=== PATIENT | female | born 1955 | race Caucasian/White ===

== ENCOUNTER → 2018-10-21 09:51 | Outpatient (CLI) | payer OTHER, SELFPAY ==
[2018-10-13 15:36] VITALS: BMI 30.4
--- NOTE | 2018-10-21 10:43 | ECHOD_ITS ---
Reason For Study: HYPERTENSION Procedure This was a 2D Doppler, Color Flow transthoracic echocardiogram. Exam performed in department. Left Ventricle Normal LV size. Left ventricular systolic function is normal. The estimated ejection fraction is 60 %. Stage 1 diastolic dysfunction. No regional wall motion abnormalities noted. Right Ventricle Normal RV size. Normal systolic function. Atria Normal left atrium. Normal right atrium. Mitral Valve Normal mitral valve. Tricuspid Valve Normal tricuspid valve. Mild (1+) tricuspid valve insufficiency. Pulmonary artery systolic pressure is 38 mmHg. Aortic Valve Normal aortic valve. Trisinus/trileaflet aortic valve. Pulmonic Valve Normal pulmonic valve. Great Vessels Normal aortic root. The pulmonary artery is normal size. Normal inferior vena cava. Pericardium/Pleural No pericardial effusion. MMode/2D Measurements & Calculations LVIDd: 4.6 cm IVSd: 0.86 cm Ao root diam: 3.3 cm LVIDs: 3.0 cm LVPWd: 0.81 cm RVDd: 3.1 cm FS: 34.8 % LAV(MOD-bp): 49.6 ml LVAd ap4: 27.9 cm2 SV(MOD-sp4): 50.8 ml LAV(MOD-bp) Indexed: 27.0 ml/m2 EDV(MOD-sp4): 77.0 ml LAV(MOD-sp2): 58.7 ml EDV(sp4-el): 80.8 ml LAV(MOD-sp4): 35.9 ml LVAs ap4: 14.1 cm2 ESV(MOD-sp4): 26.2 ml ESV(sp4-el): 26.4 ml EF(MOD-sp4): 66.0 % EF(sp4-el): 67.3 % SV(sp4-el): 54.3 ml LA A4 area: 14.7 cm2 LA dimension(2D): 3.5 cm RA A4 area: 11.7 cm2 Time Measurements MV dec time: 0.39 sec Doppler Measurements & Calculations MV E max mathew: 81.6 cm/sec Lat Peak E' Mathew: 9.3 cm/sec Med Peak E' Mathew: 6.1 cm/sec MV A max mathew: 120.6 cm/sec E/E' lat: 8.8 E/E' med: 13.3 MV E/A: 0.68 Ao V2 max: 178.0 cm/sec LV V1 max: 147.6 cm/sec PA V2 max: 127.3 cm/sec Ao max P.7 mmHg LV V1 max P.7 mmHg TR max mathew: 293.3 cm/sec TR max P.4 mmHg Interpretation Summary Normal LV size. Left ventricular systolic function is normal. The estimated ejection fraction is 60 %. Stage 1 diastolic dysfunction. Mild (1+) tricuspid valve insufficiency. Ordering Physician: Long Oh Referring Physician: JENNIFER BHATT Performed By: Jayne Fontenot RDCS
== END ==
PROVIDERS: Family Provider Family Medicine; PCP Family Medicine; Referring Provider Internal Medicine Cardiovascular Disease; Visit Provider Internal Medicine Cardiovascular Disease
DX: I10 Essential (primary) hypertension (principal); R55 Syncope and collapse
CPT/HCPCS: 93306

== ENCOUNTER 2018-10-25 07:53 | Day surgery (SDC) | payer OTHER, SELFPAY ==
[2018-10-13 15:36] VITALS: BMI 30.4
[2018-10-21 10:28] LABS: Hematocrit 42.3 % (37-47); Hemoglobin 14.1 g/dl (12.0-15.0); Mean Corp Hgb Conc 33.3 g/gl (32-36); Mean Corpuscular Hgb 30.5 pg (27.0-32.0); Mean Corpuscular Volume 91.4 fL (81-99); Mean Platelet Vol. 10.6 fl (6.2-12.0); Platelet Count 192 K/mm3 (150-450); RBC Distribution Width CV 12.2 % (11.6-14.6); RBC Distribution Width SD 40.7 fl (35.1-43.9); Red Blood Count 4.63 M/mm3 (4.2-5.4); Scan Indicated on CBC? Y/N NO; White Blood Count 4.5 K/mm3 (4.4-11.0)
[2018-10-21 11:12] LABS: Anion Gap 3 (5-15); BUN 10 mg/dL (7-18); BUN/Creat Ratio 15.9 RATIO (10-20); Calcium,Total 9.2 mg/dL (8.5-10.1); Chloride 103 mmol/L (98-107); Creatinine, Serum 0.63 mg/dL (0.55-1.02); EST Glomerular Filtration Rate 101 mL/min (>60); Est Glom Filt Rate - Afr Amer 122 mL/min (>60); Glucose 88 mg/dL (74-106); Sodium Level 138 mmol/L (136-145)
[2018-10-22 08:01] VITALS: BMI 30.4
--- NOTE | 2018-10-25 10:28 | CL.IE_ITS ---
Patient: ORACIO SMITH Study Date: 10/25/2018 Performing: Long Oh MD : 1955 Age: 63 Gender: female PROCEDURES PERFORMED [id number] OF LOOP RECORDER INDICATIONS Syncope PROCEDURE DETAILS The patient was brought to the Catheterization Lab in the postabsorptive nonsedated state. Infor med consent was obtained prior to the procedure. Local anesthetic was given subcutaneously to the le ft upper chest area with Lidocaine 2%. ICM Reveal LINQ was inserted into the pocket. The patient sophie erated the procedure well. Estimated Blood Loss: < 10 mls IMPLANTED / EX-PLANTED DEVICES IMPLANTED DEVICE(S): ICM Reveal LINQ - Juice Standardizer: Vis[employer], Model # LNQ11 Serial # [id number] DEVICE PARAMETERS CONCLUSIONS / RECOMMENDATIONS Device Conclusions: Successful implantation of a patient activated loop recorder. Device Recommendations: Follow up with Primary Care Physician PROCEDURE MEDICATIONS Versed 1 mg IV Oxygen: 2 L/min via nasal cannula Antibiotic given in appropriate timeframe. Ancef 2 Gm IV @ 10/25/2018 10:10:00 Signed By Long Oh MD On 10/25/2018 10:28:10 Long Oh MD
--- NOTE | 2018-10-25 10:33 | HP.PCM_ITS ---
History and Physical History of Present Illness Details: Ms. Neely is a pleasant 62-year-old lady with a history of hypertension, hyperlipidemia, anxiety, and a history of recurrent syncope. Some of these episodes have occurred when she has gotten up quickly and some of them have prodromes and others do not. She has had at least 6 episodes of the above. She has not necessarily had any dizzy spells and has not had any chest pain prior to having these episodes. She has been compliant with all her medications and she tells me that they have been increased sequentially. As part of her work-up she underwent a 24-hour Holter monitor which demonstrated an average heart rate of 59 bpm in sinus rhythm minimum of 42 bpm and a maximum of 110 bpm. Occasional PACs and PVCs were noted. No significant bradycardia arrhythmias were noted. Her electrolytes were also noted to be normal. Her physical exam here today demonstrates clear lung smith regular rate and rhythm no pedal edema her blood pressure is elevated. She is also been keeping a diary of her blood pressure measurements at home and they have been elevated. Intake Vital Signs 10/13/18 Height 5 ft 4 in 10/13/18 Weight: 177 lb 10/13/18 Body Mass Index (BMI) 30.4 10/13/18 Blood Pressure 170/82 H 10/13/18 Respiratory Rate 16 10/13/18 Pulse Rate 65 10/13/18 Pulse Ox 98 Intake Visit Reasons: PCP ref'd for HTN, uncontrolled HTN Allergies No Known Allergies Allergy (Unverified 10/13/18 06:57) Medications amlodipine 5 mg tablet 5 mg PO DAILY #90 tab 10/13/18 [Rx Confirmed 10/13/18] atorvastatin 20 mg tablet 20 mg PO QHS 10/13/18 [History Confirmed 10/13/18] hydrochlorothiazide 25 mg tablet 25 mg PO DAILY 10/13/18 [History Confirmed 10/13/18] lisinopril 40 mg tablet 40 mg PO DAILY #90 tab 10/13/18 [Rx Confirmed 10/13/18] multivitamin tablet 1 tab PO DAILY 10/13/18 [History Confirmed 10/13/18] sertraline 50 mg tablet 50 mg PO DAILY 10/13/18 [History Confirmed 10/13/18] [facility] Medical History Bradycardia (Chronic) Essential (primary) hypertension (Chronic) Hyperlipidemia (Chronic) Syncopal episodes (Chronic) Anxiety and depression (Chronic) IBS (irritable bowel syndrome) (Chronic) Obesity (Chronic) Pancreatitis (Resolved) Surgical History History of carpal tunnel release (Resolved) History of hysterectomy (Resolved) History of total left knee replacement (Resolved 06/2018) Hx of cholecystectomy (Resolved) Family History Father Myocardial infarction Hypertension Heart disease Mother Hypertension Grandmother Myocardial infarction paternal Grandfather Heart disease paternal Social History Smoking Status: Never smoker alcohol intake: current alcohol intake frequency: holidays/special occasions only ROS Const Const: Negative for fatigue, weakness, headache(s), frequent falls, difficulty sleeping or excessive sweating Eyes Eyes: Negative for loss of peripheral vision, transient loss of vision, blurry vision, double vision or tunnel vision ENT ENT: Negative for headache(s), dizziness, Nosebleed/epistaxis or balance problems Cardio Chest Pain: No Palpitations: Yes (Occasional fluttering before syncopal episode) feels like its: skipping Edema: None Muscle aches with walking: None Resp Respiratory: Negative for SOB with activity, SOB at rest, SOB orthopnea\SOB lying down, Cough or paroxysmal nocturnal dyspnea GI GI: Negative nausea, vomiting, heartburn or black,tarry stools : Negative for hematuria Musc Musc: Negative for muscle aches/ myalgia, muscle weakness, joint pain or balance problems Skin Skin: Negative non-healing lesions, rash or unusual bruising Neuro Neuro: Positive for lightheadedness, near syncope and syncope (6 syncopal episodes past 6 months); negative for dizziness, orthostatic symptoms, frequent falls, headache(s), weakness, blurry vision, double vision or lack of coordination [place] Hematologic/Lymphatic: Negative for easy bleeding or easy bruising Endo Endo: Negative for fatigue, excessive sweating or increased thirst/drinking Psych Psych: Negative for anxiety or depression Allergy Allergy/Immunology: Negative for hives, Negative for rash Cardiology Exam Const Appearance: cooperative, healthy appearing, no acute distress, well developed and well groomed Nutritional Appearance: average body habitus and well nourished Orientation: alert, awake and oriented x3 Head Head: normal to inspection, normocephalic and atraumatic Ears: hearing grossly normal bilaterally and external ears normal Nose: external nose normal, nares normal, nasal mucous membranes and turbinates normal, septum normal, no nasal discharge Face and Sinus: face symmetric Mouth: oral mucosae normal, tongue normal, oropharynx normal and moist mucous membranes Teeth and gingiva: dentition normal Throat: posterior oropharynx normal, tonsils normal and uvula midline Eyes General: appearance normal, both eyes and all related structures Eyelids: eyelids normal Conjunctivae: conjunctivae normal Pupils: PERRL, normal by confrontation and accommodation normal EOM: EOM intact bilaterally Neck Neck: normal visual inspection, trachea midline and no JVD JVD: +5 Carotids: normal carotid upstroke and bounding pulses Chest Chest inspection: normal inspection of the chest, symmetric chest movement and normal respiratory effort Auscultation: Bilateral: Clear to Auscultation Cardio Palpation: normal PMI Rate: regular rate Rhythm: regular rhythm Heart sounds: S1 normal, S2 normal and normal, physiologic split S2; negative rub, gallop or murmur GI GI: normal to inspection, soft, no hepatosplenomegaly and bowel sounds present Neuro General: alert, awake, oriented x3, gait normal, moves all extremities and no focal sensory deficit Skin Skin: no rashes or lesions noted Extremities Pulses: Normal: Right Femoral Pulse, Left Femoral Pulse, Right Dorsalis Pedis Pulse, Left Dorsalis Pedis Pulse, Right Posterior Tibial Pulse, Left Posterior Tibial Pulse, Right Radial Pulse, Left Radial Pulse Lower Extremity Edema: None: Bilateral Musculoskel Musculoskeletal: No joint tenderness Psych Psychological: normal affect Assessment & Plan 1. Essential (primary) hypertension I10 Plan She does have a history of hypertension which is not very well controlled. I would recommend making some changes to her blood pressure medications by reducing her lisinopril to 40 mg once a day, continuing the hydrochlorothiazide, adding amlodipine 5 mg a day to her regimen. She should continue to monitor her blood pressures at home and we will make further recommendations. Orders Orders: Echo Complete Today Basic Metabolic Profile (BMP) Today 2. Syncopal episodes R55 Plan She has had recurrent syncopal episodes the etiology of which is not clear she has had EKGs as well as Holter monitors which have been unyielding. I would recommend that we obtain an echocardiogram to assess her left ventricular function and consider an implantable loop recorder. I have discussed the above with her shared decision-making has been made risk benefits alternatives have been explained to her. This would allow us to monitor for any further syncopal episodes. Thank you for allowing me to participate in the care of your patient. Please don't hesitate to call if any issues arise Patient seen and evaluated and reviewed no changes noted.
== END 2018-10-25 11:45 | disposition home or self-care (01) ==
LOC: CLSP 07:53
PROVIDERS: Family Provider Family Medicine; PCP Family Medicine; Referring Provider Internal Medicine Cardiovascular Disease; Visit Provider Internal Medicine Cardiovascular Disease
DX: I10 Essential (primary) hypertension (principal); R55 Syncope and collapse; E78.5 Hyperlipidemia, unspecified; K58.9 Irritable bowel syndrome, unspecified; F32.9 Major depressive disorder, single episode, unspecified; F41.9 Anxiety disorder, unspecified
CPT/HCPCS: 33285; 36415; 80048; 85027; 99152; 99153; J7040